=== PATIENT | male | born 1945 | race Caucasian/White ===

== ENCOUNTER 2022-04-29 13:35 | Emergency (ER) | payer MEDICARE, OTHER ==
[~2022-04-29] VITALS: Ht 188 cm; Wt 97.7 kg
[2022-04-29 13:37] VITALS: BP 123/75
[2022-04-29] MEDS ORDERED: FENO1CAP16 PO (13:50)
[2022-04-29] MEDS ORDERED: PRAV10TA3 PO (13:50)
[2022-04-29] MEDS ORDERED: VITA100093 PO (15:24)
[2022-04-29] MEDS ORDERED: FENO134C16 PO (15:24)
[2022-04-29] MEDS ORDERED: VITA-158 PO (15:24)
[2022-04-29] MEDS ORDERED: FENO135C6 PO (15:24)
[2022-04-29] MEDS ORDERED: ACET1TAB55 PO (15:24)
[2022-04-29] MEDS ORDERED: PRAV40TA2 PO (15:24)
[2022-04-29] MEDS ORDERED: HOME MED LIST COMPLETE! XX SCH (15:25)
[2022-04-29] MEDS ORDERED: NIRMATRELVIR/RITONAVIR CO-PACK (EMERGENCY USE AUTH) PO SCH ×2 (15:30→21:00)
[2022-04-29] MEDS ORDERED: VALT1TAB PO (16:52)
== END 2022-04-29 16:15 | disposition home or self-care (01) ==
LOC: M ED 13:35
DX: U07.1 COVID-19 (principal); Z20.89 Contact with and (suspected) exposure to other communicable diseases; I10 Essential (primary) hypertension; E78.5 Hyperlipidemia, unspecified; Z85.828 Personal history of other malignant neoplasm of skin; Z87.01 Personal history of pneumonia (recurrent)